=== PATIENT | male | born 1955 | race Caucasian/White ===

== ENCOUNTER 2020-09-17 13:25 | Outpatient (CLI) | payer MEDICARE, SELFPAY ==
--- NOTE | 2020-09-17 | XR_ITS ---
WS: [id number] LUMBAR SPINE: 3 VIEWS TECHNIQUE: AP, lateral and L5-S1 spot. HISTORY: LUMBAGO WITH SCIATICA LEFT COMPARISON: None available. Posterior lumbar alignment is normal. Mild narrowing of the disc spaces. Endplate osteophytes throughout all levels. Moderate facet joint a rthritis L4-5 and L5-S1. Pedicles are all identified. Mild narrowing and sclerosis of the SI joints. Prior cholecystectomy. Atherosclerosis aorta. XR/XR lumbar spine 2-3V* [id number] IMPRESSION: Moderate spondylitic changes throughout the lumbar spine. No fracture.
== END 2020-09-17 13:26 | disposition home or self-care (01) ==
PROVIDERS: Visit Provider Nurse Practitioner Family
DX: M54.40 Lumbago with sciatica, unspecified side (principal)
CPT/HCPCS: 72100

== ENCOUNTER 2020-11-02 09:59 | Outpatient (CLI) | payer MEDICARE, SELFPAY ==
--- NOTE | 2020-11-02 10:15 | CT_ITS ---
WS: [id number] CT ABDOMEN PELVIS TECHNIQUE: Contrast-enhanced CT of the abdomen and pelvis with coronal and sagittal reformatted image s. CLINICAL INFORMATION: OTHER SPECIFIED DISEASES OF THE LIVER COMPARISON: None. DLP: 1145.[address] scans at [facility] use at least one of these dose optimization techniques: automated e xposure control; mA and/or kV adjustment per patient size (includes targeted exams where dose is matc hed to clinical indication); or iterative reconstruction. FINDINGS: Diffuse fatty infiltration of the liver. Normal portal vein and splenic vein. Prior cholecystectomy. Physiologic dilatation of the bile duct. Prior gastric bypass. Small esophageal hiatal hernia. Subseg mental atelectasis right lower lobe. Adrenal glands are normal. Normal pancreatic parenchymal enhance ment. Normal caliber abdominal aorta. Aortic calcification. Slightly ectatic distal abdominal aorta. No hydronephrosis in either kidney. Right upper pole renal cyst measuring 3.5 x 4.3 CM. Splenic cyst or hemangioma measuring 4.0 x 4.7 CM. Additional incidental splenic cyst measuring 12 mm. Enlarged prostate measuring 4.1 cm. Recommend correlation PSA. Sigmoid diverticulosis. No evidence of acute diverticulitis. No evidence of high-grade small or large bowel destruction. No free fluid in the pelvis. Disc space narrowing worse at L3-L5. CT/CT abdomen pelvis w con* [id number] IMPRESSION: 1. Diffuse fatty infiltration of the liver. Prior cholecystectomy. 2. Prior gastric bypass. 3. Right upper pole simple renal cyst measuring 4.3 x 3.5 CM. 4. Large splenic cyst or hemangioma measuring 4.0 x 4.7 cm. 5. Mild prostate enlargement measuring 4.1 CM. Recommend correlation PSA. 6. Sigmoid diverticulosis. No evidence of acute diverticulitis.
[2020-11-02] MEDS: iohexol 300 mg/mL 50 mL Btl PO (10:23)
[2020-11-02] MEDS: iohexol 300 mg/mL 100 mL Btl IV (11:44)
== END 2020-11-02 10:00 | disposition home or self-care (01) ==
PROVIDERS: PCP Nurse Practitioner Family; Visit Provider Nurse Practitioner Family
DX: K76.89 Other specified diseases of liver (principal); K76.0 Fatty (change of) liver, not elsewhere classified; Z98.84 Bariatric surgery status; N28.1 Cyst of kidney, acquired; D73.4 Cyst of spleen; N40.0 Benign prostatic hyperplasia without lower urinary tract symptoms; K57.30 Diverticulosis of large intestine without perforation or abscess without bleeding
CPT/HCPCS: 74177; Q9967

== ENCOUNTER → 2020-11-20 14:27 | Outpatient (BNVA) | payer MEDICARE, SELFPAY | PROVIDERS: PCP Nurse Practitioner Family; Visit Provider Psychiatry & Neurology Psychiatry | DX: F33.2 Major depressive disorder, recurrent severe without psychotic features (principal); F41.1 Generalized anxiety disorder; F10.21 Alcohol dependence, in remission | CPT/HCPCS: 99204 ==

== ENCOUNTER → 2021-12-01 09:41 | Outpatient (BNVA) | payer MEDICARE, SELFPAY | PROVIDERS: PCP Nurse Practitioner Family; Referring Provider Nurse Practitioner Family; Visit Provider Specialist | DX: M75.81 Other shoulder lesions, right shoulder (principal) | CPT/HCPCS: 73030; 99204 ==

== ENCOUNTER 2022-01-07 08:04 | Emergency (ER) | payer MEDICARE, SELFPAY ==
[2022-01-07 08:19] VITALS: BP 143/93; PULSE 68; RESP 15; TEMP 36.4; O2SAT 94; BMI 33.0
[2022-01-07 08:26] VITALS: BP 130/85; O2SAT 97
--- NOTE | 2022-01-07 08:27 | XR_ITS ---
WS: [id number] XR wrist LT min 3V* [id number] REASON FOR EXAM: fall with wrist pain FINDINGS: Significant decreased bone density. There is deformity of the distal radial metaphysis most compatible with remote previous fracture maciel angel luis the age is uncertain as there are areas of linear sclerosis and lucency indicating this could be a subacute fracture or possibly an acute injury superimposed on old healed injury. The fracture is extra-articular with preservation of the articular surface. There is no significant r adial shortening. Fracture line is inferior to the radial ulnar joint. XR/XR wrist LT min 3V* [id number] IMPRESSION: Fracture of the distal radius uncertain age. Possibly subacute or acute injury superimposed on an old healed injury.
--- NOTE | 2022-01-07 08:54 | ED_ITS ---
Documented by User: [email or web address] Page 01/08/22 07:23 HPI - Extremity Problem General: Chief complaint: Extremity Injury, Upper Stated complaint: Left wrist in pain and pain in stomach Time Seen by Provider: 01/07/22 08:06 History of Present Illness: Patient is a 66-year-old male who comes to the ED with multiple complaints. this morning patient tripped over a briefcase and fell landing on his left wrist. He now has 7 out of 10 pain in his left wrist. He says it hurts for him to move his wrist or fingers. The other reason patient came to the ED today was because he has been having abdominal pain for the past month. Says the abdominal pain has progressed and its getting more severe over the past couple days. He rates the abdominal pain currently a 6 out of 10. Abdominal pain is located in the periumbilical and epigastric region of the abdomen. He has decreased appetite. Denies any fevers, nausea/vomiting, bladder or bowel symptoms. Past surgical history of gastric sleeve, cholecystectomy and appendectomy. Associated symptoms: Deny chest pain, fever(s) or rash Review of Systems Const: Denies: fever(s), chills or fatigue Eyes: Denies: change in vision or eye discomfort ENMT: Denies: throat pain, odynophagia, nasal discharge or nasal congestion Card: Denies: chest pain, palpitations, edema, swelling of feet/ankles, dyspnea on exertion or orthopnea Resp: Denies: dyspnea, productive cough or non-productive cough GI: Reports: abdominal pain; Denies: nausea, vomiting, diarrhea, constipation or hematochezia : Denies: flank pain, difficulty urinating, dysuria or hematuria Musc: Reports: extremity pain (left wrist pain); Denies: neck pain, back pain or extremity swelling Skin/Breast: Denies: rash or new lesions Neuro: Denies: headache(s), numbness in extremities or weakness in extremities PFSH ED PFSH: Medical History Chest pressure Hyperlipidemia LDL goal <100 Family History Mother , 54 y/o Hypertension Stroke Father Family history of CABG Aneurysm Dementia Brother Family history of CABG Myocardial infarction Grandfather Aneurysm Suicide Psychiatric illness Social History Smoking and tobacco status: current every day smoker cigarettes Packs smoked per day: 1 Years cigarettes smoked: 5 Quit status (tobacco): has tried quititng Number of times tried to quit tobacco: 1 Second hand smoke exposure: Yes Alcohol intake: former Physical Exam Const: COMMON NORMALS: patient oriented x3 and alert GENERAL APPEARANCE: cooperative HENMT: COMMON NORMALS: normocephalic HEAD & SCALP: normocephalic MOUTH: Normal oral and palatal mucosa present THROAT: posterior oropharynx normal and uvula midline Neck/C-Spine: COMMON NORMALS: supple GENERAL: Yes normal visual inspection Resp: COMMON NORMALS: normal respiratory effort, No retractions, No use of accessory muscles and clear to auscultation bilaterally AUSCULTATION: clear to auscultation bilaterally Cardio: COMMON NORMALS: regular rate, regular rhythm, S1 normal heart sound present, S2 normal heart sound present, No gallops present (Cardio), No clicks present (Cardio), No murmurs present (Cardio) and Peripheral pulses 2+ throughou t RATE: regular rate RHYTHM: regular rhythm HEART SOUNDS: S1 normal heart sound present and S2 normal heart sound present PERIPHERAL PULSES: Peripheral pulses 2+ throughout GI: COMMON NORMALS: Normal to inspection, nondistended, normoactive bowel sounds present, Soft to palpation and no masses PALPATION: Yes Soft to palpation and Yes Tenderness to palpation present (GI) Details: other (Periumbilical and epigastric region) : COMMON NORMALS: Yes no CVA tenderness BLADDER/KIDNEY EXAM: Yes no CVA tenderness Back/Pelvis: COMMON NORMALS: no CVA tenderness Extremity: LEFT UPPER EXTREMITY: Yes wrist Left wrist: Yes inspection (Swelling, ecchymosis noted, mild deformity seen.), Yes palpation (Nontender), Yes ROM (Limited range of motion) and Yes neurovascular exam (Intact) Neuro: COMMON NORMALS: patient oriented x3 SENSORIUM/ORIENTATION: Yes alert GAIT: Yes Normal gait present Skin: GENERAL SKIN EXAM: dry skin Course Vital Signs: Vital signs: Vital Signs Temperature 97.6 F 01/07/22 08:19 Pulse Rate 55 L 01/07/22 11:03 Respiratory Rate 17 01/07/22 09:03 Blood Pressure 124/77 01/07/22 11:03 Pulse Oximetry 94 01/07/22 11:03 Oxygen Delivery Me thod 01/07/22 08:26 MDM - Extremity (Nontraumatic) Medical Decision Making Patient is a 66-year-old male who comes to the ED with multiple complaints. this morning patient tripped over a briefcase and fell landing on his left wris t. He now has 7 out of 10 pain in his left wrist. He says it hurts for him to move his wrist or fingers. The other reason patient came to the ED today was because he has been having abdominal pain for the past month. Says the abdominal pain has progressed and its getting more severe over the past couple days. He rates the abdominal pain currently a 6 out of 10. Abdominal pain is located in the periumbilical and epigastric region of the abdomen. Vitals are stable exam of patient shows some periumbilical tenderness. Left wrist has some swelling and ecchymosis noted mild deformity seen. Neurovascular intact. Labs are unremarkable. CT of abdomen pelvis shows no acute findings. Wrist x-ray shows distal radius fracture. I placed an order with case management for patient be referred to Ortho for follow-up. He was put in a volar wrist splint and stable for discharge home. He was diagnosed with a left wrist fracture and abdominal pain. He was discharged home with a prescription for some Zofran and hydrocodone for pain. Return to ED precautions given. Patient understood and a greed with plan. Lab Data I reviewed the patient's lab results. 01/07/22 08:46 01/07/22 08:46 Radiology Impressions Wrist X-Ray 01/07/22 08:27 IMPRESSION: Fracture of the distal radius uncertain age. Possibly subacute or acute injury superimposed on an old healed injury. Abdomen/Pelvis CT 01/07/22 09:22 IMPRESSION: 1. Normal pancreatic parenchymal enhancement. No evidence of acute pancreatitis. 2. Prior cholecystectomy. Mild intrahepatic and common bile duct dilatation likely physiologic postcholecystectomy similar to previous. This is slightly progressed compared to previous and can be followed up with MRCP. Recommend correlation with biliary function studies. 3. Stable splenic cysts or hemangiomas. Stable RIGHT renal cyst. 4. Prior postoperative changes gastric bypass with small esophageal hiatal hernia. Hiatal hernia appears slightly progressed compared to previous 5. No hydronephrosis. 6. Prior appendectomy. 7. No other acute findings and overall no significant changes compared to previous. Laboratory Results WBC 9.0 10^3/uL (4.0-10.0) 01/07/22 08:46 RBC 5.14 10^6/uL (4.1-5.3) 01/07/22 08:46 Hgb 15.0 g/dL (11.7-16.6) 01/07/22 08:46 Hct 46.2 % (42.0-52.0) 01/07/22 08:46 MCV 89.9 fl (80-94) 01/07/22 08:46 MCH 29.2 pg (28.0-34.0) 01/07/22 08:46 MCHC 32.5 g/dL (30.0-36.0) 01/07/22 08:46 RDW 15.1 % (12.1-15.1) 01/07/22 08:46 Plt Count 185 10^3/cmm (130-400) 01/07/22 08:46 MPV 9.8 fL (7.4-10.4) 01/07/22 08:46 Neut % (Auto) 63.0 % 01/07/22 08:46 Lymph % (Auto) 24.5 % 01/07/22 08:46 [place] % (Auto) 10.7 % 01/07/22 08:46 Eos % (Auto) 0.9 % 01/07/22 08:46 Baso % (Auto) 0.6 % 01/07/22 08:46 Neut # (Auto) 5.65 10^3/uL (1.8-7.7) 01/07/22 08:46 Lymph # (Auto) 2.2 10^3/uL (0.8-4.8) 01/07/22 08:46 [place] # (Auto) 1.0 10^3/uL (0.2-0.9) H 01/07/22 08:46 Eos # (Auto) 0.1 10^3/uL (0.0-0.8) 01/07/22 08:46 Baso # (Auto) 0.1 10^3/uL (0.0-0.1) 01/07/22 08:46 Nucleated RBC % (auto) 0 % 01/07/22 08:46 Nucleated RBCs # 0.0 /100WBC 01/07/22 08:46 Sodium 138 mmol/L (136-145) 01/07/22 08:46 Potassium 4.2 mmol/L (3.5-5.1) 01/07/22 08:46 Chloride 102 mmol/L (98-107) 01/07/22 08:46 Carbon Dioxide 27 mmol/L (22-29) 01/07/22 08:46 Anion Gap 13.2 (5-19) 01/07/22 08:46 BUN 14 mg/dL (8-23) 01/07/22 08:46 Creatinine 1.2 mg/dL (0.7-1.2) 01/07/22 08:46 GFR Calculation 60.4 mL/min (90-130) L 01/07/22 08:46 Glucose 99 mg/dL (65-115) 01/07/22 08:46 Calculated Osmolality 287 mOsm/kg (285-295) 01/07/22 08:46 Calcium 9.1 mg/dL (8.5-10.5) 01/07/22 08:46 Total Bilirubin 0.2 mg/dL (0.15-1.2) 01/07/22 08:46 AST 18 U/L (0-40) 01/07/22 08:46 ALT 13 U/L (0-41) 01/07/22 08:46 Alkaline Phosphatase 124 U/L (40-130) 01/07/22 08:46 Total Protein 6.9 g/dL (6.6-8.7) 01/07/22 08:46 Albumin 3.7 g/dL (3.5-5.2) 01/07/22 08:46 Globulin 3.2 g/dL (1.3-4.6) 01/07/22 08:46 Lipase 36 U/L (13-60) 01/07/22 08:46 Discharge Plan Discharge Patient Disposition: Home Clinical Impression: Wrist fracture, left Qualifiers: Encounter type: initial encounter Fracture type: closed Qualified Code(s): S62.102A - Fracture of unspecified carpal bone, left wrist, initial encounter for closed fracture Abdominal pain Qualifiers: Abdominal location: periumbilical Qualified Code(s): R10.33 - Periumbilical pain Condition: Stable Prescriptions: New ondansetron 4 mg tablet,disintegrating 4 mg PO Q8H PRN (Reason: nausea and vomiting) Qty: 15 0RF No Action nitroglycerin [Nitrostat] 0.4 mg tablet, sublingual 0.4 mg sublingual Q5M PRN (Reason: chest pain) Qty: 25 3RF Rx Instructions: do not exceed 3 doses per episode clonidine HCl 0.1 mg tablet 0.1 mg PO BID atorvastatin 80 mg tablet 80 mg PO DAILY ezetimibe 10 mg tablet 10 mg PO DAILY tamsulosin 0.4 mg capsule 0.4 mg PO DAILY omeprazole 20 mg capsule,delayed release(DR/EC) 20 mg PO DAILY multivitamin Tablet 1 tab PO DAILY hydroxyzine HCl 50 mg tablet 50 mg PO TID PRN (Reason: anxiety) Qty: 90 2RF metoprolol succinate 25 mg tablet extended release 24 hr 25 mg PO DAILY Qty: 30 0RF Rx Instructions: MUST have follow-up with new provider for further refills diazepam 10 mg Tablet 10 mg PO TID PRN (Reason: Anxiety) gabapentin 600 mg tablet 600 mg PO BID sertraline 100 mg tablet 100 mg PO DAILY Discharge Orders: Discharge ED (Routine); Ordered 01/07/22 Ordered By: Jakub Browning Referrals: Cortney Verdugo DO [Primary Care Provider] - Discharge Diet: Regular Discharge Activity: Increase activity as tolerated Patient Instructions: Wrist Fracture in Children (ED), Abdominal Pain (ED), Opioid Safety Activity Restrictions/Additional Instructions: Follow-up with medical provider as directed. Case management should contact you in the next several days to set up an appointment with Ortho for follow-up on wrist fracture. Take medications as prescribed. Return to the ER or your medical provider if condition worsens. Please read and understand discharge instructions. Thank you for choosing [facility] for your healthcare needs today. Please realize this is an emergency room and that we are providing you with a medical screening exam and this may not be complete and all inclusive of all the testing and or work up that you may need to determine your ailment or severity of your illness. It is very important that you follow up as instructed or that you return to the Emergency Department should you have concerns or if your condition changes or worsens in any way. Coding Level of Care Code ED [employer] for [facility] Fwd Exam Comprehensive Documented by User: Ben Lafleur DO 01/08/22 09:07 HPI - Extremity Problem General: Chief complaint: Extremity Injury, Upper Stated complaint: Left wrist in pain and pain in stomach Time Seen by Provider: 01/07/22 08:06 [facility] ED PFSH: Medical History Chest pressure Hyperlipidemia LDL goal <100 Family History Mother , 54 y/o Hypertension Stroke Father Family history of CABG Aneurysm Dementia Brother Family history of CABG Myocardial infarction Grandfather Aneurysm Suicide Psychiatric illness Social History Smoking and tobacco status: current every day smoker cigarettes Packs smoked per day: 1 Years cigarettes smoked: 5 Quit status (tobacco): has tried quititng Number of times tried to quit tobacco: 1 Second hand smoke exposure: Yes Alcohol intake: former Course Vital Signs: Vital signs: Vital Signs Temperature 97.6 F 01/07/22 08:19 Pulse Rate 55 L 01/07/22 11:03 Respiratory Rate 17 01/07/22 09:03 Blood Pressure 124/77 01/07/22 11:03 Pulse Oximetry 94 01/07/22 11:03 Oxygen Delivery Me thod 01/07/22 08:26 MDM - Extremity (Nontraumatic) Medical Decision Making Patient is a 66-year-old male who comes to the ED with multiple complaints. this morning patient tripped over a briefcase and fell landing on his left wrist. He now has 7 out of 10 pain in his left wrist. He says it hurts for him to move his wrist or fingers. The other reason patient came to the ED today was because he has been having abdominal pain for the past month. Says the abdominal pain has progressed and its getting more severe over the past couple days. He rates the abdominal pain currently a 6 out of 10. Abdominal pain is located in the periumbilical and epigastric region of the abdomen. Vitals are stable exam of patient shows some periumbilical tenderness. Left wrist has some swelling and ecchymosis noted mild deformity seen. Neurovascular intact. Labs are unremarkable. CT of abdomen pelvis shows no acute findings. Wrist x-ray shows distal radius fracture. I placed an order with case management for patient be referred to Ortho for follow-up. He was put in a volar wrist splint and stable for discharge home. He was diagnosed with a left wrist fracture and abdominal pain. He was discharged home with a prescription for some Zofran and hydrocodone for pain. Return to ED precautions given. Patient understood and agreed with plan. Chart reviewed and patient discussed with midlevel. Agree with assessment and plan. Lab Data 01/07/22 08:46 01/07/22 08:46 Radiology Impressions Wrist X-Ray 01/07/22 08:27 IMPRESSION: Fracture of the distal radius uncertain age. Possibly subacute or acute injury superimposed on an old healed injury. Abdomen/Pelvis CT 01/07/22 09:22 IMPRESSION: 1. Normal pancreatic parenchymal enhancement. No evidence of acute pancreatitis. 2. Prior cholecystectomy. Mild intrahepatic and common bile duct dilatation likely physiologic postcholecystectomy similar to previous. This is slightly progressed compared to previous and can be followed up with MRCP. Recommend correlation with biliary function studies. 3. Stable splenic cysts or hemangiomas. Stable RIGHT renal cyst. 4. Prior postoperative changes gastric bypass with small esophageal hiatal hernia. Hiatal hernia appears slightly progressed compared to previous 5. No hydronephrosis. 6. Prior appendectomy. 7. No other acute findings and overall no significant changes compared to pr evious. Laboratory Results WBC 9.0 10^3/uL (4.0-10.0) 01/07/22 08:46 RBC 5.14 10^6/uL (4.1-5.3) 01/07/22 08:46 Hgb 15.0 g/dL (11.7-16.6) 01/07/22 08:46 Hct 46.2 % (42.0-52.0) 01/07/22 08:46 MCV 89.9 fl (80-94) 01/07/22 08:46 MCH 29.2 pg (28.0-34.0) 01/07/22 08:46 MCHC 32.5 g/dL (30.0-36.0) 01/07/22 08:46 RDW 15.1 % (12.1-15.1) 01/07/22 08:46 Plt Count 185 10^3/cmm (130-400) 01/07/22 08:46 MPV 9.8 fL (7.4-10.4) 01/07/22 08:46 Neut % (Auto) 63.0 % 01/07/22 08:46 Lymph % (Auto) 24.5 % 01/07/22 08:46 [place] % (Auto) 10.7 % 01/07/22 08:46 Eos % (Auto) 0.9 % 01/07/22 08:46 Baso % (Auto) 0.6 % 01/07/22 08:46 Neut # (Auto) 5.65 10^3/uL (1.8-7.7) 01/07/22 08:46 Lymph # (Auto) 2.2 10^3/uL (0.8-4.8) 01/07/22 08:46 [place] # (Auto) 1.0 10^3/uL (0.2-0.9) H 01/07/22 08:46 Eos # (Auto) 0.1 10^3/uL (0.0-0.8) 01/07/22 08:46 Baso # (Auto) 0.1 10^3/uL (0.0-0.1) 01/07/22 08:46 Nucleated RBC % (auto) 0 % 01/07/22 08:46 Nucleated RBCs # 0.0 /100WBC 01/07/22 08:46 Sodium 138 mmol/L (136-145) 01/07/22 08:46 Potassium 4.2 mmol/L (3.5-5.1) 01/07/22 08:46 Chloride 102 mmol/L (98-107) 01/07/22 08:46 Carbon Dioxide 27 mmol/L (22-29) 01/07/22 08:46 Anion Gap 13.2 (5-19) 01/07/22 08:46 BUN 14 mg/dL (8-23) 01/07/22 08:46 Creatinine 1.2 mg/dL (0.7-1.2) 01/07/22 08:46 GFR Calculation 60.4 mL/min (90-130) L 01/07/22 08:46 Glucose 99 mg/dL (65-115) 01/07/22 08:46 Calculated Osmolality 287 mOsm/kg (285-295) 01/07/22 08:46 Calcium 9.1 mg/dL (8.5-10.5) 01/07/22 08:46 Total Bilirubin 0.2 mg/dL (0.15-1.2) 01/07/22 08:46 AST 18 U/L (0-40) 01/07/22 08:46 ALT 13 U/L (0-41) 01/07/22 08:46 Alkaline Phosphatase 124 U/L (40-130) 01/07/22 08:46 Total Protein 6.9 g/dL (6.6-8.7) 01/07/22 08:46 Albumin 3.7 g/dL (3.5-5.2) 01/07/22 08:46 Globulin 3.2 g/dL (1.3-4.6) 01/07/22 08:46 Lipase 36 U/L (13-60) 01/07/22 08:46 Discharge Plan Discharge Patient Disposition: Home Clinical Impression: Wrist fracture, left Qualifiers: Encounter type: initial encounter Fracture type: closed Qualified Code(s): S62.102A - Fracture of unspecified carpal bone, left wrist, initial encounter for closed fracture Abdominal pain Qualifiers: Abdominal location: periumbilical Qualified Code(s): R10.33 - Periumbilical pain Condition: Stable Prescriptions: New ondansetron 4 mg tablet,disintegrating 4 mg PO Q8H PRN (Reason: nausea and vomiting) Qty: 15 0RF No Action nitroglycerin [Nitrostat] 0.4 mg tablet, sublingual 0.4 mg sublingual Q5M PRN (Reason: chest pain) Qty: 25 3RF Rx Instructions: do not exceed 3 doses per episode clonidine HCl 0.1 mg tablet 0.1 mg PO BID atorvastatin 80 mg tablet 80 mg PO DAILY ezetimibe 10 mg tablet 10 mg PO DAILY tamsulosin 0.4 mg capsule 0.4 mg PO DAILY omeprazole 20 mg capsule,delayed release(DR/EC) 20 mg PO DAILY multivitamin Tablet 1 tab PO DAILY hydroxyzine HCl 50 mg tablet 50 mg PO TID PRN (Reason: anxiety) Qty: 90 2RF metoprolol succinate 25 mg tablet extended release 24 hr 25 mg PO DAILY Qty: 30 0RF Rx Instructions: MUST have follow-up with new provider for further refills diazepam 10 mg Tablet 10 mg PO TID PRN (Reason: Anxiety) gabapentin 600 mg tablet 600 mg PO BID sertraline 100 mg tablet 100 mg PO DAILY Discharge Orders: Discharge ED (Routine); Ordered 01/07/22 Ordered By: Jakub Browning Referrals: Cortney Verdugo DO [Primary Care Provider] - Discharge Diet: Regular Discharge Activity: Increase activity as tolerated Patient Instructions: Wrist Fracture in Children (ED), Abdominal Pain (ED), Opioid Safety Activity Restrictions/Additional Instructions: Follow-up with medical provider as directed. Case management should contact you in the next several days to set up an appointment with Ortho for follow-up on wrist fracture. Take medications as prescribed. Return to the ER or your [place] dical provider if condition worsens. Please read and understand discharge instructions. Thank you for choosing [facility] for your healthcare needs today. Please realize this is an emergency room and that we are providing you with a medical screening exam and this may not be complete and all inclusive of all the testing and or work up that you may need to determine your ailment or severity of your illness. It is very important that you follow up as instructed or that you return to the Emergency Department should you have concerns or if your condition changes or worsens in any way. Coding Level of Care Code ED [employer] for [facility] Exam Comprehensive
[2022-01-07 09:01] LABS: Basophils # 0.1 10^3/uL (0.0-0.1); Basophils % 0.6 %; Eosinophils # 0.1 10^3/uL (0.0-0.8); Eosinophils % 0.9 %; Hematocrit 46.2 % (42.0-52.0); Lymphocytes # 2.2 10^3/uL (0.8-4.8); Lymphocytes % 24.5 %; Mean Corpuscular HGB Conc 32.5 g/dL (30.0-36.0); Mean Corpuscular Hemoglobin 29.2 pg (28.0-34.0); Mean Corpuscular Volume 89.9 fl (80-94); Mean Platelet Volume 9.8 fL (7.4-10.4); Monocytes % 10.7 %; Neutrophils # 5.65 10^3/uL (1.8-7.7); Nucleated Red Blood Cells % 0 %; Platelet Count 185 10^3/cmm (130-400); Red Blood Count 5.14 10^6/uL (4.1-5.3); Red Cell Distribution Width 15.1 % (12.1-15.1)
[2022-01-07 09:03] VITALS: RESP 17; O2SAT 97
[2022-01-07] MEDS: ondansetron 2 mg/ML SDV 2 mL 4 MG IVP (09:03)
[2022-01-07] MEDS: morphine 4 mg/mL SDV 1 mL IVP (09:03)
[2022-01-07 09:18] LABS: Alanine Aminotransferase 13 U/L (0-41); Albumin Level 3.7 g/dL (3.5-5.2); Alkaline Phosphatase 124 U/L (40-130); Anion Gap 13.2 (5-19); Aspartate Amino Transferase 18 U/L (0-40); Blood Urea Nitrogen 14 mg/dL (8-23); Calcium 9.1 mg/dL (8.5-10.5); Carbon Dioxide 27 mmol/L (22-29); Chloride 102 mmol/L (98-107); Globulin 3.2 g/dL (1.3-4.6); Glomerular Filtration Rate 60.4 mL/min (90-130); Glucose 99 mg/dL (65-115); Lipase 36 U/L (13-60); Osmolality Calculated 287 mOsm/kg (285-295); Potassium 4.2 mmol/L (3.5-5.1); Sodium 138 mmol/L (136-145); Total Bilirubin 0.2 mg/dL (0.15-1.2); Total Protein 6.9 g/dL (6.6-8.7)
--- NOTE | 2022-01-07 09:22 | CT_ITS ---
WS: [id number] CT ABDOMEN PELVIS TECHNIQUE: Contrast-enhanced CT of the abdomen and pelvis with coronal and sagittal reformatted image s. CLINICAL INFORMATION: abdominal pain-periumbilical COMPARISON: November 02, 2020 DLP: 995.[address] scans at [facility] use at least one of these dose optimization techniques: automated e xposure control; mA and/or kV adjustment per patient size (includes targeted exams where dose is matc hed to clinical indication); or iterative reconstruction. FINDINGS: Diffuse fatty infiltration the liver. Prior cholecystectomy. Mild intrahepatic biliary ductal intrahe patic dilatation likely physiologic postcholecystectomy. Stable splenic cyst or hemangiomas unchanged . Slight bibasilar atelectasis. Normal pancreatic parenchymal enhancement. No evidence of acute pancr eatitis. Adrenal glands are normal. Normal renal parenchymal enhancement. No hydronephrosis. Stable R IGHT upper pole renal cyst measuring 4.3 x 3.5 CCM. No hydronephrosis in either kidney. Splenic cyst or hemangioma measuring 4.0, 4.7 CCM. Normal portal vein and splenic vein. Normal calibe r abdominal aorta. Celiac and SMA are patent. Gastric bypass. Small esophageal hiatal hernia. Sigmoid diverticulosis. No evidence of acute diverticulitis. No evidence of small or large bowel obst ruction. Prior appendectomy. Prominent prostate measuring 4.1 cm unchanged. Space narrowing lower lum bar spine. CT/CT abdomen pelvis w con* [id number] IMPRESSION: 1. Normal pancreatic parenchymal enhancement. No evidence of acute pancreatiti s. 2. Prior cholecystectomy. Mild intrahepatic and common bile duct dilatation li kp physiologic postcholecystectomy similar to previous. This is slightly prog ressed compared to previous and can be followed up with MRCP. Recommend correla tion with biliary function studies. 3. Stable splenic cysts or hemangiomas. Stable RIGHT renal cyst. 4. Prior postoperative changes gastric bypass with small esophageal hiatal her radha. Hiatal hernia appears slightly progressed compared to previous 5. No hydronephrosis. 6. Prior appendectomy. 7. No other acute findings and overall no significant changes compared to prev ious.
[2022-01-07] MEDS: iohexol 350 mg/mL 500 mL Btl (per mL) IV (09:48)
[2022-01-07] MEDS: sodium chloride 0.9% 500 ML 999 ML IV (10:18)
[2022-01-07 11:03] VITALS: BP 124/77; PULSE 55; O2SAT 94
--- NOTE | 2022-01-07 12:19 | DCPLANNER ---
Addendum entered by Sue Wheeler 01/14/22 13:57: Patient had a follow up appointment scheduled for 01.13.22 with ortho - patient did attend appointment. Original Note: nurse manager had message to schedule a follow up appointment for patient with ortho. nurse manager sent patients information to the front office staff at ortho. Patients information will be printed and reviewed. Clinic will call patient with appointment information.
== END 2022-01-07 11:05 | disposition home or self-care (01) ==
PROVIDERS: Emergency Provider Physician Assistant; PCP Family Medicine
DX: S52.502A Unspecified fracture of the lower end of left radius, initial encounter for closed fracture (principal); R10.33 Periumbilical pain; E78.5 Hyperlipidemia, unspecified; F17.210 Nicotine dependence, cigarettes, uncomplicated; W18.09XA Striking against other object with subsequent fall, initial encounter
CPT/HCPCS: 29125; 73110; 74177; 80053; 83690; 85025; 96361; 96374; 96375; 99285; J2270; J2405; J7040; Q9967

== ENCOUNTER 2022-01-13 09:11 | Outpatient (CLI) | payer MEDICARE, SELFPAY ==
--- NOTE | 2022-01-13 09:30 | MR_ITS ---
WS: [id number] MRI RIGHT SHOULDER NONCONTRAST TECHNIQUE: Sagittal T2, coronal T1, T2 and proton density imaging. Axial gradient PDE imaging. CLINICAL INFORMATION: right shoulder pain COMPARISON: None. FINDINGS: Moderate degenerative arthritis AC joint with mild downsloping acromion. Slight subacromial spurring. Edema and fluid at the AC joint. Chronic thinning of the distal supraspinatus. Chronic thinning of the supraspinatus with tendinopathy . Infraspinatus is intact with mild tendinopathy distally. Tiny insertional infraspinatus tear. Isadora l teres minor. Normal subscapularis. Hypertrophic spurring along the humeral neck. Advanced degenerat mary arthritis glenohumeral joint. Biceps tendon intact within the bicipital groove although somewhat diminutive especially along the pr oximal portion. This is likely due to prior chronic tear. Intra-articular portion difficult to visual ize and likely chronically torn MR/MR shoulder RT wo con* [id number] IMPRESSION: 1. Advanced degenerative arthritis AC joint with mild edema. Small amount of f luid. Slight subacromial spurring. 2. Tendinopathy distal supraspinatus with chronic thinning. Tiny tear at the i nfraspinatus insertion. Tendinopathy infraspinatus. 3. Rotator cuff is otherwise intact. 4. Biceps tendon intact within the bicipital groove although somewhat diminuti ve along the proximal and intra-articular portions likely due to chronic tear. Small intra-articular biceps tendon difficult to visualize. 5. Advanced degenerative arthritis at the glenohumeral joint.
== END 2022-01-13 09:12 | disposition home or self-care (01) ==
PROVIDERS: PCP Family Medicine; Visit Provider Specialist
DX: S62.102A Fracture of unspecified carpal bone, left wrist, initial encounter for closed fracture (principal); M19.011 Primary osteoarthritis, right shoulder; M75.81 Other shoulder lesions, right shoulder; X58.XXXA Exposure to other specified factors, initial encounter
CPT/HCPCS: 73110; 73221

== ENCOUNTER 2022-01-13 11:52 | Outpatient (CLI) | payer MEDICARE, SELFPAY | END 2022-01-13 11:53 | disposition home or self-care (01) | LOC: SPT 11:53 | PROVIDERS: PCP Family Medicine; Visit Provider Physician Assistant | DX: Z46.89 Encounter for fitting and adjustment of other specified devices (principal); S52.592D Other fractures of lower end of left radius, subsequent encounter for closed fracture with routine healing; X58.XXXD Exposure to other specified factors, subsequent encounter | CPT/HCPCS: 97760; 99203; L3982 ==

== ENCOUNTER → 2022-02-02 07:45 | Outpatient (BNVA) | payer MEDICARE, SELFPAY | PROVIDERS: PCP Family Medicine; Visit Provider Specialist | DX: M75.81 Other shoulder lesions, right shoulder (principal); M19.011 Primary osteoarthritis, right shoulder | CPT/HCPCS: 99213 ==

== ENCOUNTER → 2022-02-03 08:06 | Outpatient (BNVA) | payer MEDICARE, SELFPAY | PROVIDERS: PCP Family Medicine; Visit Provider Physician Assistant | DX: S52.502D Unspecified fracture of the lower end of left radius, subsequent encounter for closed fracture with routine healing (principal); X58.XXXD Exposure to other specified factors, subsequent encounter | CPT/HCPCS: 73110; 99212 ==

== ENCOUNTER → 2024-04-22 09:10 | Outpatient (BNVA) | payer MEDICARE, SELFPAY | PROVIDERS: PCP Family Medicine; Visit Provider Specialist | DX: M19.011 Primary osteoarthritis, right shoulder (principal) | CPT/HCPCS: 20610; 73030; 99214; J1100; J2795; J3301; J9999 ==

== ENCOUNTER → 2024-05-13 10:39 | Outpatient (BNVA) | payer MEDICARE, SELFPAY | PROVIDERS: PCP Family Medicine; Visit Provider Specialist | DX: M19.012 Primary osteoarthritis, left shoulder (principal) | CPT/HCPCS: 20610; 73030; 99214; J1100; J2795; J3301; J9999 ==

== ENCOUNTER → 2024-12-09 09:54 | Outpatient (BNVA) | payer MEDICARE, SELFPAY | PROVIDERS: PCP Family Medicine; Visit Provider Student in an Organized Health Care Education/Training Program | DX: R12 Heartburn (principal); R03.0 Elevated blood-pressure reading, without diagnosis of hypertension | CPT/HCPCS: 99204 ==

== ENCOUNTER 2024-12-16 07:56 | Day surgery (SDC) | payer MEDICARE, SELFPAY ==
[2024-12-16 08:18] VITALS: BP 149/102; PULSE 70; RESP 18; TEMP 36.6; O2SAT 95
--- NOTE | 2024-12-16 08:24 | ANES.PREANE2 ---
Pre-Anesthetic Assessment Height/Weight: Height 1.78 m Weight 95.254 kg Temp Pulse Resp BP Pulse Ox O2 Del Method 97.9 F 70 18 149/102 95 Room Air 12/16/24 08:18 12/16/24 08:18 12/16/24 08:18 12/16/24 08:18 12/16/24 08:18 12/16/24 08:18 Preop Diagnosis: Abd pain, screening Operation Date: 12/16/24 09:15 Proposed Procedures p EGD EGD with Biopsy [id number] [id number] G0121 R12 Z12.11(Not Applicable) - J Carlos Encarnacion MD s Colonoscopy(Not Applicable) - J Carlos Encarnacion MD Was Beta Tenzin taken within 24 hours: Yes Was Clonidine taken within 24 hours: N/A Social Tobacco and No alcohol Exam alert, oriented x 3, clear to auscultation bilaterally and regular rate & rhythm Airway Submandibular: within normal limits Cervical ROM: within normal limits Mallampati: Class II Dentition: false History/ROS No significant history except as noted and No significant complaints Pulmonary Chronic Obstructive Pulmonary Disease CV/HEM Hypertension None reported Hepatic None reported GI Hx gastric bypass Metabolic None reported Musc/skel Lower Back Pain and Osteoarthritis/DJD Neuropsych None reported Anesthetic Plan ASA status: 3 Anesthesia: Anesthesia Evaluation and MAC Risk of > 500 ml blood loss (7ml/kg in children): No Medications/Allergies Home Medications ?Medication ?Instructions ?Recorded ?Confirmed ?Last Taken ?Type atorvastatin 80 mg tablet 80 mg PO DAILY 10/19/20 12/11/24 12/11/24 06:00 History ezetimibe 10 mg tablet 10 mg PO DAILY 10/19/20 12/11/24 12/11/24 06:00 History omeprazole 20 mg capsule,delayed 20 mg PO DAILY 10/19/20 12/11/24 12/11/24 06:00 History release nitroglycerin 0.4 mg sublingual 0.4 mg sublingual Q5M PRN chest 12/03/20 12/11/24 12/11/24 06:00 Rx tablet (Nitrostat) pain #25 tabs metoprolol succinate 25 mg 25 mg PO DAILY #30 tabs 12/06/21 12/11/24 12/11/24 06:00 Rx tablet,extended release 24 hr diazepam 10 mg tablet 10 mg PO TID PRN Anxiety 01/07/22 12/11/24 12/11/24 06:00 History gabapentin 600 mg tablet 600 mg PO BID 01/07/22 12/11/24 12/11/24 06:00 History ondansetron 4 mg disintegrating 4 mg PO Q8H PRN nausea and 01/07/22 12/11/24 Unknown Rx tablet vomiting #15 tabs sertraline 100 mg tablet 100 mg PO DAILY 01/07/22 12/11/24 12/10/24 18:00 History fast form #1 ea 01/13/22 12/09/24 Unknown Rx cholecalciferol (vitamin D3) 1,250 PO .weekly 12/09/24 12/09/24 12/11/24 06:00 History mcg (50,000 unit) capsule evolocumab 140 mg/mL subcutaneous 140 mg SUBCUT .every 2 weeks 12/09/24 12/11/24 12/11/24 06:00 History pen injector (Repatha SureClick) Allergies Allergy/AdvReac Type Severity Reaction Status Date / Time shrimp Allergy Severe Anaphylaxis Verified 12/11/24 11:12 [facility] Anesthesia Medical History Hyperlipidemia LDL goal <100 Chest pressure Family History Mother , 54 y/o Hypertension Stroke Father Family history of CABG Aneurysm Dementia Brother Family history of CABG Myocardial infarction Grandfather Aneurysm Suicide Psychiatric illness Social History Smoking and tobacco/nicotine status: current every day tobacco/nicotine user cigarettes Packs smoked per day: 1 Years cigarettes smoked: 5 Quit status (tobacco/nicotine): has tried quititng Number of times tried to quit tobacco: 1 Second hand smoke exposure: Yes Alcohol intake: former Substance/Drug Use: current
--- NOTE | 2024-12-16 08:36 | W.PM.OPSUD ---
Surgery/Procedure H&P Update DATE OF PROCEDURE: December 16, 2024 DATE H&P PERFORMED: 12/09/24 H&P UPDATE INFORMATION: I have reviewed H&P completed within last 30 days, I have examined patient prior to procedure, No changes to prior documentation and Risks and benefits of the procedure reviewed CHANGES TO PREVIOUS DOCUMENTATION: I have explained the risks and benefits of a screening colonoscopy and the patient agrees to proceed. Patient is average for colon cancer. Patient understands that hemoccult is an alternative and still decides to proceed with colonoscopy. Had an extensive discussion with the patient. Answered all questions. Patient understands that the risks include a 1% risk of iatrogenic perforation and risk of aspiration. I have explained the risks and benefits of a diagnostic EGD with biopsy and the patient agrees to proceed. PREOP DIAGNOSIS: Abd pain, screening PLANNED PROCEDURE: Operation Date: 12/16/24 09:15 Proposed Procedures p EGD EGD with Biopsy [id number] G0121 R12 Z12.11(Not Applicable) - J Carlos Encarnacion MD s Colonoscopy(Not Applicable) - J Carlos Encarnacion MD
--- NOTE | 2024-12-16 09:00 | ANE.PACU2 ---
Inpatient post-anesthesia follow up: Airway intact: Yes Vital signs: Temperature 97.1 F Pulse Rate 54 Respiratory Rate 18 Blood Pressure 133/88 Pulse Oximetry 95 Oxygen Delivery Me thod Room Air Oxygen Flow Rate Fraction of Inspir ed Oxygen Hydration adequate: Yes Nausea and vomiting: No Pain level: 1 Mental status: Baseline
[2024-12-16 09:15] VITALS: BP 134/86; PULSE 63; RESP 20; TEMP 36.2; O2SAT 96
[2024-12-16 09:34] VITALS: BP 133/88; PULSE 54; RESP 18; O2SAT 95
== END 2024-12-16 09:40 | disposition home or self-care (01) ==
PROVIDERS: PCP Family Medicine; Visit Provider Student in an Organized Health Care Education/Training Program
PROC: 0DJ08ZZ Inspection of Upper Intestinal Tract, Via Natural or Artificial Opening Endoscopic (ICD-10-PCS; principal; 2024-12-16 09:15)
PROC: 0DJD8ZZ Inspection of Lower Intestinal Tract, Via Natural or Artificial Opening Endoscopic (ICD-10-PCS; CPT 45378; 2024-12-16 09:15)
DX: Z12.11 Encounter for screening for malignant neoplasm of colon (principal); D12.6 Benign neoplasm of colon, unspecified; K52.9 Noninfective gastroenteritis and colitis, unspecified; R12 Heartburn; K29.70 Gastritis, unspecified, without bleeding; J44.9 Chronic obstructive pulmonary disease, unspecified; I10 Essential (primary) hypertension; Z98.84 Bariatric surgery status; K21.9 Gastro-esophageal reflux disease without esophagitis; E78.5 Hyperlipidemia, unspecified; F17.210 Nicotine dependence, cigarettes, uncomplicated
CPT/HCPCS: 43239; 45380; 88305; J2704; J7030; J9999

== ENCOUNTER → 2025-01-03 08:50 | Outpatient (BNVA) | payer MEDICARE, SELFPAY | PROVIDERS: PCP Family Medicine; Visit Provider Student in an Organized Health Care Education/Training Program | DX: Z51.89 Encounter for other specified aftercare (principal) | CPT/HCPCS: 99213 ==

== ENCOUNTER 2025-01-09 12:51 | Emergency (ER) | payer MEDICARE, SELFPAY ==
[2025-01-09 12:49] VITALS: BP 140/81; PULSE 62; RESP 18; TEMP 36.6; O2SAT 96; BMI 30.1
--- NOTE | 2025-01-09 12:49 | XR_ITS ---
WS: [id number] Exam: XR ankle LT min 3V* [id number] Date/Time of Exam: 01/09/2025 12:55 PM Reason For Exam: trauma On the oblique view there is a questionable nondisplaced hairline fracture across the medial malleolus. This is not identified on the other views. The ankle mortise is equidistant. No other sign of fracture. Marked soft tissue thickening identified in the region of the Achilles tendon. This could represent acute injury or chronic tendinopathy. XR/XR ankle LT min 3V* [id number] IMPRESSION: 1. Questionable hairline nondisplaced fracture of the medial malleolus seen onl y on the oblique view. 2. There is marked posterior soft tissue thickening which could indicate Achil les tendon injury or chronic tendinopathy..
--- NOTE | 2025-01-09 12:49 | US_ITS ---
WS: [id number] ULTRASOUND SOFT TISSUES LEFT Achilles tendon HISTORY: L achilles tendon COMPARISON: CT 01/09/2025 and radiograph 01/09/2025 TECHNIQUE: 2-D and color Doppler imaging is submitted. There is a large complex mass centered along the Achilles tendon. No identifiable normal morphology of the tendon identified at this location. There our some images where the tendon appears to be intact but these are not labeled to describe the location to the Achilles injury. US/US soft tissue/extremity [id number] IMPRESSION: Ultrasound findings are highly suspicious for a complete Achilles tendon tear w ith hemorrhage. Recommend nonurgent MRI LEFT ankle.
--- NOTE | 2025-01-09 13:24 | CT_ITS ---
WS: [id number] Noncontrast CT LEFT ankle TECHNIQUE: Noncontrast CT LEFT ankle with coronal and sagittal reformatted images. CLINICAL INFORMATION: occult fracture/achilles tendon rupture COMPARISON: None. DLP: 162.[address] scans at [facility] use at least one of these dose optimization techniques: automated exposure control; mA and/or kV adjustment per patient size (includes targeted exams where dose is matched to clinical indication); or iterative reconstruction. FINDINGS: Marked diffuse Achilles tendinopathy with peritendinitis. Associated soft tissue edema. Suspected high-grade near full-thickness partial tear approximately 6 cm from the distal insertion. No tendon retraction. Recommend follow-up MRI for better detail. Degenerative arthritis ankle mortise. Normal medial and lateral malleolus. Distal fibula appears normal. Tibial plafond appears normal. Normal talar dome. Talar neck is normal. Normal calcaneus. Achilles insertion enthesophytes. Normal cuboid. Base of the fifth metatarsal is normal. No acute fractures CT/CT ankle LT wo con* [id number] IMPRESSION: 1. Marked Achilles tendinopathy with peritendinitis. Suspected high-grade part ial near full-thickness tear approximately 6 cm from the distal insertion. Deon mmend follow-up MRI for better anatomic detail. No tendon widening. 2. No acute fractures visualized
--- NOTE | 2025-01-09 13:28 | W.ED.EXTPRO ---
HPI - Extremity Problem General: Chief complaint: Extremity Injury, Lower Stated complaint: fall 1 week ago - left leg pain History of Present Illness: 69-year-old male presents emergency room complaining of left ankle pain. About a week and a half ago he stepped in a pothole while deer hunting injured his left ankle. He has been ambulating and bearing weight on it since then and then today felt a popping sensation and states he cannot bear weight at all on that left leg. No other injuries. No chest pain no shortness of breath no swelling lower extremity Associated symptoms: Deny chest pain, fever(s) or rash Related Data Home Medications ?Medication ?Instructions ?Recorded ?Confirmed atorvastatin 80 mg tablet 80 mg PO QAM 10/19/20 01/09/25 ezetimibe 10 mg tablet 10 mg PO QPM 10/19/20 01/09/25 diazepam 10 mg tablet 10 mg PO TID PRN Anxiety 01/07/22 01/09/25 gabapentin 600 mg tablet See Rx Instructions .Route .COMPLEX 01/07/22 01/09/25 sertraline 100 mg tablet 100 mg PO QPM 01/07/22 01/09/25 cholecalciferol (vitamin D3) 1,250 1,250 mcg PO .weekly 12/09/24 01/09/25 mcg (50,000 unit) capsule evolocumab 140 mg/mL subcutaneous 140 mg SUBCUT .every 2 weeks 12/09/24 01/09/25 pen injector ([place]) metoprolol succinate 25 mg 25 mg PO QAM 01/09/25 01/09/25 tablet,extended release 24 hr omeprazole 40 mg capsule,delayed 40 mg PO DAILY 01/09/25 01/09/25 release trazodone 150 mg tablet 300 mg PO BEDTIME PRN Sleep 01/09/25 01/09/25 Previous Rx's ?Medication ?Instructions ?Recorded nitroglycerin 0.4 mg sublingual 0.4 mg sublingual Q5M PRN chest 12/03/20 tablet (Nitrostat) pain #25 tabs fast form #1 ea 01/13/22 diclofenac sodium 75 mg 75 mg PO Q12H PRN pain #20 tabs 01/09/25 tablet,delayed release Allergies Allergy/AdvReac Type Severity Reaction Status Date / Time shrimp Allergy Severe Anaphylaxis Verified 01/03/25 08:52 Review of Systems Const: Denies: fever(s) or chills Card: Denies: chest pain Resp: Denies: dyspnea GI: Denies: abdominal pain : Denies: dysuria, urinary frequency or urinary urgency Musc: Denies: neck pain or back pain Skin/Breast: Denies: rash PFSH ED PFSH: Medical History Hyperlipidemia LDL goal <100 Chest pressure Family History Mother , 54 y/o Hypertension Stroke Father Family history of CABG Aneurysm Dementia Brother Family history of CABG Myocardial infarction Grandfather Aneurysm Suicide Psychiatric illness Social History Smoking and tobacco/nicotine status: current every day tobacco/nicotine user cigarettes Packs smoked per day: 1 Years cigarettes smoked: 5 Quit status (tobacco/nicotine): has tried quititng Number of times tried to quit tobacco: 1 Second hand smoke exposure: Yes Alcohol intake: former Substance/Drug Use: current Physical Exam Const: COMMON NORMALS: no acute distress GENERAL APPEARANCE: cooperative and comfortable ORIENTATION/CONSCIOUSNESS: Yes awake, Yes oriented to person, Yes oriented to place and Yes oriented to time HENMT: COMMON NORMALS: normocephalic, atraumatic and hearing grossly normal bilaterally HEAD & SCALP: normocephalic and atraumatic Resp: COMMON NORMALS: normal respiratory effort, No retractions, No use of accessory muscles and clear to auscultation bilaterally AUSCULTATION: clear to auscultation bilaterally Cardio: COMMON NORMALS: regular rate, regular rhythm and No murmurs present (Cardio) RATE: regular rate RHYTHM: regular rhythm GI: COMMON NORMALS: Soft to palpation and No hepatosplenomegaly present AUSCULTATION: Yes normoactive bowel sounds PALPATION: Yes Soft to palpation, No Tenderness to palpation present (GI), No Guarding due to palpation present (GI) and Yes No hepatosplenomegaly present Extremity: OTHER: Examination left ankle dorsalis pedis posterior tibialis pulses palpable sensation normal 0 strength with attempts to plantarflex can flex. Palpation of the Achilles tendon there is significant mild edema in the lower aspect near the insertion of the Achilles at the calcaneus cannot palpate an Achilles tendon. Neuro: SENSORIUM/ORIENTATION: Yes oriented to person, Yes oriented to place and Yes oriented to time Skin: COMMON NORMALS: no rashes or lesions noted GENERAL SKIN EXAM: no rashes or lesions noted Course Vital Signs: Vital signs: Vital Signs Temperature 97.8 F 01/09/25 12:49 Pulse Rate 52 L 01/09/25 14:21 Respiratory Rate 18 01/09/25 12:49 Blood Pressure 117/68 01/09/25 15:09 Pulse Oximetry 93 01/09/25 15:09 Oxygen Delivery Me thod Room Air 01/09/25 15:09 MDM - Extremity (Nontraumatic) Medical Decision Making Medical decision making Social determinants: None I reviewed the patient's medical record. I reviewed the patient's current home meds. Alternate historians: None Differential diagnosis: Ankle fractures versus Achilles tendon injury Lab Review: None Imaging: X-ray questionable medial malleolus fracture. This CT shows that there is no fracture in the ankle however questions Achilles tendon injury. This was also noted on soft tissue ultrasound where there is suspicion for complete tear of the Achilles tendon 5 to 6 cm proximal to its insertion. Discussed with Dr. Osullivan who read the films. Assessment of risk Level of risk: Moderate Hospitalization considerations: No need for hospitalization. Reexamination: Unchanged Assessment and plan: No fracture on imaging however patient is highly suspicious for Achilles tendon rupture both on physical exam with lack of plantarflexion and palpable defect of the Achilles tendon as well as on imaging as described above. Contacted Dr. Hernandez who actually arrived in the emergency room to see the patient for himself. We discussed the findings with the patient together with Dr. Hernandez will coordinate further follow-up. Referral made for follow-up in his office as well as outpatient MRI. Lab Data Radiology Impressions Ankle X-Ray 01/09/25 12:49 IMPRESSION: 1. Questionable hairline nondisplaced fracture of the medial malleolus seen only on the oblique view. 2. There is marked posterior soft tissue thickening which could indicate Achilles tendon injury or chronic tendinopathy.. Soft Tissue Ultrasound 01/09/25 12:49 IMPRESSION: Ultrasound findings are highly suspicious for a complete Achilles tendon tear with hemorrhage. Recommend nonurgent MRI LEFT ankle. Ankle CT 01/09/25 13:24 IMPRESSION: 1. Marked Achilles tendinopathy with peritendinitis. Suspected high-grade partial near full-thickness tear approximately 6 cm from the distal insertion. Recommend follow-up MRI for better anatomic detail. No tendon widening. 2. No acute fractures visualized All radiology interpretation(s) finalized by discharge Discharge Plan Discharge Patient Disposition: Home Clinical Impression: Achilles tendon tear Qualifiers: Encounter type: initial encounter Laterality: left Qualified Code(s): S86.012A - Strain of left Achilles tendon, initial encounter Condition: Stable Prescriptions: New diclofenac sodium 75 mg tablet,delayed release (DR/EC) 75 mg PO Q12H PRN (Reason: pain) Qty: 20 0RF No Action nitroglycerin [Nitrostat] 0.4 mg tablet, sublingual 0.4 mg sublingual Q5M PRN (Reason: chest pain) Qty: 25 3RF Rx Instructions: do not exceed 3 doses per episode atorvastatin 80 mg tablet 80 mg PO QAM ezetimibe 10 mg tablet 10 mg PO QPM cholecalciferol (vitamin D3) 1,250 mcg (50,000 unit) capsule 1,250 mcg PO .weekly Rx Instructions: Monday's Repatha SureClick 140 mg/mL pen injector 140 mg SUBCUT .every 2 weeks (DME) fast form See Rx Instructions .Route .MEDSUPPLY Qty: 1 0RF Rx Instructions: As directed diazepam 10 mg Tablet 10 mg PO TID PRN (Reason: Anxiety) gabapentin 600 mg tablet See Rx Instructions .ROUTE .COMPLEX Rx Instructions: Take 1 tablet by mouth in the morning and 2 tablets in the evening. sertraline 100 mg tablet 100 mg PO QPM omeprazole 40 mg capsule,delayed release(DR/EC) 40 mg PO DAILY trazodone 150 mg tablet 300 mg PO BEDTIME PRN (Reason: Sleep) metoprolol succinate 25 mg tablet extended release 24 hr 25 mg PO QAM Discharge Orders: Discharge ED (Routine); Ordered 01/09/25 Ordered By: Ben Lafleur Referrals: Cortney Verdugo DO [Primary Care Provider, Family Practice] Discharge Diet: Usual diet Discharge Activity: Resume usual activity Patient Instructions: Opioid Safety, Pain Management, Patient Portal & Arnel Instructions Activity Restrictions/Additional Instructions: Thank you for choosing [facility] for your healthcare needs today. It is very important that you follow up as instructed or that you return to the Emergency Department should you have concerns or if your condition changes or worsens in any way. Emergency department visits are focused on emergent conditions, in some cases you may require further evaluation on an outpatient basis. You were seen in the emergency room with complaints of pain on the left lower leg. After evaluation was found that there are no fractures however there is a rupture of your Achilles tendon. Recommend you do not bear any weight on this leg at all. You are placed in a splint and recommend you use crutches. Will set up an outpatient MRI of the tendon and have you follow-up with Dr. Matthews who also seen you while you are in the emergency room (Please note that included in your discharge packet is information concerning opioid safety and pain management. This information is given to all patients were discharged from the ER regardless of their discharge diagnosis or the medicines they usually take or are prescribed.) Print Language: Occitan Coding Level of Care Code ED Marine Oiler for Sampson Jaffe
[2025-01-09 14:21] VITALS: BP 140/81; PULSE 52; O2SAT 91
[2025-01-09 14:52] VITALS: O2SAT 94
--- OUTSIDE RECORDS SUMMARY | 2025-01-09 15:06 | XMS_ITS | Encounter Summary ---
Author Organization [facility] Address [address] [place] [address] Care Team Providers Care Weather Forcaster Name Role Phone LucinaCortney pena Екатерина WILLIAM Primary Care Provider [phone] Reason for Visit * Reason Comments Med Refill Encounter Details Date Type Department Care Team (Late Contact Info) Description 01/04/2025 Refill [facility] [place] [address] [place] [address] Tilley, May, [facility] [address] [place] [address] Social History Tobacco Use Types Packs/Day Years Used Date Smoking Tobacco: Some Days Cigarettes 1 5 Started: 01/02/2018; Last attempted to quit: 01/02/2023 Passive Smoke Exposure: Past Smokeless Tobacco: Never Alcohol Use Standard Drinks/Week Comments Not Currently 0 (1 standard drink = 0.6 oz pure alcohol) recovering alcoholic, sober since 2016 Financial Resource Strain Answer Date R ecorded How hard is it for you to pa y for the very basics like food, housing, medical care, and heating? Patient declined 08/18/2022 Food Insecurity Answer Date Recorded In the past 12 months, have you worried that your food would run out before you had money to buy more? Patient declined 2022 In the past 12 months, did y ou run out of food and didn't have money to buy more? Patient declined 08/18/2022 Transportation Needs Answer Date Record ed In the past 12 months, has l ack of transportation kept you from medical appointments or from getting medications? No 08/18/2022 Lack of Transportation (Non-Medical) Not on file 08/18/2022 Sex and Gender Information Value Date Recorded Sex Assigned at Not on file Legal Sex Male 8:56 AM CDT Gender Identity Not on file Sexual Orientation Not on file documented as of this encounter Miscellaneous Notes * Telephone Encounter - Loretta Fernandez, CALENDER LET OFF OPERATOR - 01/06/2025 12:43 PM CST Medication Refill Request Last Fill Date:12/11/23 #[id number] with 6 RF TAMEKA 11/27/24 Last labs 11/27/24 Recent and Future Visits: Recent Visits Date Type Provider Dept 11/27/24 Office Visit Pramod Nascimento, [facility] 08/20/24 Office Visit Cortney Verdugo DO [facility] 02/21/24 Office Visit Tilley, May, [facility] 12/19/23 Office Visit Pramod Nascimento [facility] 12/11/23 Office Visit TilleyMay, [facility] 09/08/23 Office Visit TilleyMay, [facility] 08/21/23 Office Visit Tilley, May, [facility] Showing recent visits within past 540 days with a meds authorizing provider and meeting all other requirements Future Appointments Date Type Provider Dept 02/21/25 Appointment Tilley, May, [facility] Showing future appointments within next 365 days with a meds authorizing provider and meeting all other requirements Last Labs: Lab Results Component Value Date/Time CREAT 0.96 11/27/2024 01:02 PM CREATPOC 1.20 11/11/2020 09:29 AM BUN 10 11/27/2024 01:02 PM NA 143 11/27/2024 01:02 PM K 3.6 11/27/2024 01:02 PM CL 108 11/27/2024 01:02 PM CO2 29 11/27/2024 01:02 PM GFR 85 11/27/2024 01:02 PM Brett GIBBS - 1955 Check and review of the [place] PDMP performed on 01/06/2025 at 12:43 PM was TRANSFER OPERATOR documented in this encounter Plan of Treatment Upcoming Encounters Date Type Department Care Team (Late st Contact Info) Description 02/21/2025 8:00 AM KILN TRANSFER OPERATOR Office Visit [facility] [place] [address] [place] [id number] Tilley, May, RESEARCH PROFESSOR OF BIOSTATISTICS [address] [place] [address] documented as of this encounter Visit Diagnoses Not on filedocumented in this encounter Additional Health Concerns Assessment Noted Time PHQ-9 Depression Total Score: 2 08/21/19 25 9:04 AM CDT documented as of this encounter Care Teams Weather Forcaster Relationship Specialty Start Date End Date Cortney Verdugo DO [address] [place] [address] PCP - General Family Practice 01/11/21 documented as of this encounter
--- OUTSIDE RECORDS SUMMARY | 2025-01-09 15:06 | XMS_ITS | Encounter Summary ---
Author Organization [facility] Address [address] [place] [address] Care Team Providers Care Special Procedure Tech Name Role Phone Cortney Verdugo Екатерина WILLIAM Primary Care Provider [phone] Encounter Details Date Type Department Care Team (Latest Contact Info) Description 02/25/2024 Results Follow-Up [facility] [place] [address] [place] [address] Tilleymay, MACHINE WORKER [address] [place] [address] CBC WITH DIFFERENTIAL, LIPID PANEL, COMPREHENSIVE METABOLIC PANEL, Additional followed-up results: 2 Social History Tobacco Use Types Packs/Day Years Used Date Smoking Tobacco: Former Cigarettes 1 5 1 03/04/2017 - 01/02/2023 Passive Smoke Exposure: Past Smokeless Tobacco: [...] on file documented as of this encounter Plan of Treatment Upcoming Encounters Date Type Department Care Team (Late st Contact Info) Description 02/21/2025 8:00 AM CORRECTIONAL OFFICER CHIEF Office Visit [facility] [place] [address] [facility] [place] [address] Tilley, May, [facility] [address] [facility] [place] [address] documented as of this encounter Visit Diagnoses Not on filedocumented in this encounter Additional Health Concerns Assessment Noted Time PHQ-9 Depression Total Score: 1 02/20/19 25 9:08 AM CORRECTIONAL OFFICER CHIEF documented as of this encounter Care Teams Special Procedure Tech Relationship Specialty Start Date End Date Cortney Verdugo DO [address] [facility] [place] [facility] [place] [address] PCP - General Family Practice 01/11/21 documented as of this encounter
--- OUTSIDE RECORDS SUMMARY | 2025-01-09 15:06 | XMS_ITS | Clinical Summary ---
Author Organization [facility] Address [address] [place] [address] Phone Care Team Providers Care Lift Manager Name Role Phone Cortney Verdugo Екатерниа WILLIAM Primary Care Provider Allergies Active Allergy Reactions Criticality Noted Date Comments Shrimp Anaphylaxis High 01/13/2022 Medications nitroglycerin (NITROSTAT) 0.4 mg Tablet, Sublingual PLACE 1 TABLET (0.4 MG) UNDER TONGUE EVERY 5 MINUTES NEEDED FOR CHEST PAIN. 25 Tablet 2 024 Active atorvastatin (LIPITOR) 80 mg tabletIndications :Mixed hyperlipidemia TAKE 1 TABLET(80 MG) BY MOUTH DAILY. Strength: 80 mg 100 Tablet 3 024 Active ezetimibe (ZETIA) 10 mg tabletIndications :Mixed hyperlipidemia Take 1 Tablet (10 mg) by mouth daily. 100 Tablet 3 024 Active sertraline (ZOLOFT) 100 mg tabletIndications :Recurrent major depressive disorder, in full remission Take 1 Tablet (100 mg) by mouth daily. 90 Tablet 3 024 Active traZODone (DESYREL) 150 mg tabletIndications :Primary insomnia Take 2 Tablets (300 mg) by mouth daily at bedtime. 90 Tablet 3 024 Active omeprazole (PriLOSEC) 40 mg Capsule, Delayed Release(E.C.)Winter cations:Gastroeso phageal reflux disease without esophagitis Take 1 Capsule (40 mg) by mouth daily. 90 Capsule 3 025 Active diazePAM (VALIUM) 10 mg tabletIndications :Generalized anxiety disorder TAKE ONE TABLET BY MOUTH AT BEDTIME 30 Tablet 2 025 Active evolocumab (Repatha SureClick) 140 mg/mL Pen InjectorIndicatio ns:Coronary artery disease involving [place] coronary artery of [place] heart without angina pectoris,Familial combined hyperlipidemia Inject 1 mL (140 mg) by subcutaneous injection every 2 weeks. 2 mL 025 Active metoprolol succinate (TOPROL XL) 25 mg Extended Release 24 hour tabletIndications :Essential hypertension TAKE ONE TABLET BY MOUTH DAILY 100 Tablet 3 025 Active triamcinolone acetonide (KENALOG) 0.1 % CreamIndications: Chigger bites Apply to affected area 2 times daily. 28.4 Gram 1 025 Active cholecalciferol 1,250 mcg (50,000 unit) CapsuleIndication s:Vitamin D deficiency Take 1 Capsule (50,000 Units) by mouth every 2 weeks. 6 Capsule 3 025 Active gabapentin (NEURONTIN) 600 mg tablet TAKE ONE TABLET BY MOUTH FOUR TIMES DAILY 120 Tablet 6 025 Active gabapentin (NEURONTIN) 600 mg tablet Take 1 Tablet (600 mg) by mouth 4 times daily. 120 Tablet 6 024 2024 Discontinued Active Problems Problem Noted Date Diagnosed Date H/O gastric bypass 09/11/2024 Obesity (BMI 30.0-34.9) 08/20/2024 Rotator cuff tendinitis, right 12/19/2023 Mixed hyperlipidemia 07/19/2021 Vitamin D deficiency 07/19/2021 Essential hypertension 07/19/2021 Gastroesophageal reflux disease without esophagi tis 07/19/2021 Aortic atherosclerosis 07/19/2021 Benign prostatic hyperplasia without lower urinary tract symptoms 07/19/2021 Primary insomnia 07/19/2021 Chronic midline low back pain with bilateral sci atica 07/19/2021 Recurrent major depressive disorder, in full rem ission 07/19/2021 Cigarette smoker 07/19/2021 Resolved Problems Problem Noted Date Diagnosed Date Resolved Date Severe obesity (BMI 35.0-39. 9) with comorbidity 10/23/2021 08/20/2024 Encounters Date Type Department Care Team Description 01/04/2025 [facility] [address] [place] [phone] Treva May, [employer] 12/31/2024 External Device Data [facility] ABSTRACTION Provider, Abstract 12/12/2024 9:07 AM CONSULTING SOLUTION MANAGER - 12/12/2024 11:59 PM CONSULTING SOLUTION MANAGER Hospital Encounter [facility] CT Scan [place] [address] [place] [id number] Pramod Nascimento, [employer] Discharge Disposition: Home or Self Care 11/28/2024 Results Follow-Up [facility] [address] [place] [address] , May, [employer] TSH, CBC WITH DIFFERENTIAL, COMPREHENSIVE METABOLIC PANEL, Additional followed-up results: 5 11/27/2024 12:40 PM CDT Office Visit [facility] [address] [place] [address] Pramod Nascimento, [employer] Chronic abdominal pain (Primary Dx); H/O gastric bypass; Mixed hyperlipidemia; Screening for prostate cancer; Essential hypertension; Vitamin D deficiency 11/05/2024 Orders Only [facility] [address] [place] [address] May, [employer] Chigger bites (Primary Dx) 11/01/2024 Refill [facility] [address] [place] [address] May, [employer] Gastroesophageal reflux disease without esophagitis 10/11/2024 Refill [facility] [address] [place] [address] Tilley, May, [employer] Essential hypertension from Last 3 Months Immunizations Immunization Administration Dates Next Due INFLUENZA VACCINE HIGH DOSE QUADRIVALENT 65 YR UP PF IM 2021,11/07/2020 INFLUENZA VACCINE QUADRIVALENT ADJ 64 YR UP PF I M 12/23/2022 Influenza Seasonal Unspecified Formulation IM ,11/06/2020 Family History Medical History Relation Name Comments Colon Cancer Neg Hx Social History Tobacco Use Types Packs/Day Years Used Date Smoking Tobacco: Some Days Cigarettes 1 5 Started: 01/02/2018; Last attempted to quit: 01/02/2023 Passive Smoke Exposure: Past Smokeless Tobacco: Never Tobacco Cessation:Ready to Q uit: Not Asked; Counseling Given: Not Answered Alcohol Use Standard Drinks/Week Comments Not Currently [...] on file Sexual Orientation Not on file Last Filed Vital Signs Vital Sign Reading Time Taken Comments Blood Pressure 124/62 11/27/2024 12:31 PM CDT Pulse 62 11/27/2024 12:31 PM CDT Temperature 36.6 C (97.9 F) 11/27/2024 12:31 PM CDT Respiratory Rate 17 11/27/2024 12:3 1 PM CDT Oxygen Saturation 97% 11/27/2024 12: 31 PM CDT Inhaled Oxygen Concentration - - Weight 96.1 kg (211 lb 12.8 oz) 025 12:31 PM CDT Height 177.8 cm (5' 10 ) 11/27/2024 12: 31 PM CDT Body Mass Index 30.39 11/27/2024 12:31 PM CDT Plan of Treatment Upcoming Encounters Date Type Department Care Team (Late st Contact Info) Description 02/21/2025 8:00 AM CONSULTING SOLUTION MANAGER Office Visit [facility] [address] [place] [phone] Treva, May, [employer] [address] [place] [phone] Health Maintenance Due Date Last Done Comments Pre-Diabetes and Diabetes Screening 1955 FIT/ DNA Q 3 YEARS (AUTO ORDER) 1972 FIT/FOBT Q 1 YEAR (AUTO ORDER) 1972 FLEX SIG/CT COLONOGRAPHY Q 5 YEARS (AUTO ORDER) 1972 COLORECTAL CANCER SCREENING (AUTO ORDER) 10/20/1999 COLORECTAL SCREENING 10/20/1999 Colorectal Cancer Screening (AUTO ORDER) 10/20/1999 Colorectal Cancer Screening 10/20/1999 FIT-DNA Q 3 years 10/20/1999 FIT/FOBT Q 1 year 10/20/1999 Flex Sig/CT Colonography Q 5 years 10/20/1999 RSV VACCINE (60+ or ) (1 - Risk 50-74 years 1-dose series) 2004 ZOSTER VACCINE (1 of 2) 2004 Abdominal Aortic Aneurysm (A AA) Screening 10/20/2019 INFLUENZA VACCINE (#1) 2024 , 11/22/2021, 2021, Additional history exists COVID-19 Vaccine ( - 2024-2 6 season) 2024 11/22/2021, 01/04/2021, 06/30/2020, Additional history exists DTAP/TDAP/TD VACCINES (2 - T d or Tdap) 08/12/2027 08/11/2017 PNEUMOCOCCAL VACCINE 50+ YEARS Completed 11/29/2013 Medicare Advantage ([place]) Preventative Visit/Annual Wellness Visit Completed 08/20/2024, 08/21/2023, 08/18/2022, Additional history exists Procedures Procedure Name Priority Date/Time Associated Diagnosis Comments CT ABDOMEN W CONTRAST Routine 12/12/2024 9:49 AM CONSULTING SOLUTION MANAGER Chronic abdominal pain H/O gastric bypass VITAMIN D 25 HYDROXY Routine 11/27/2024 1:02 PM CDT Vitamin D deficiency PSA Routine 11/27/2024 1:02 PM CDT Screening for prostate cancer LIPID PANEL Routine 11/27/2024 1:02 PM CDT Mixed hyperlipidemia Essential hypertension TSH Routine 11/27/2024 1:02 PM CDT Mixed hyperlipidemia Essential hypertension ACUTE HEPATITIS PANEL Routine 11/27/2024 1:02 PM CDT Chronic abdominal pain COMPREHENSIVE METABOLIC PANEL Routine 11/27/2024 1:02 PM CDT Chronic abdominal pain H/O gastric bypass Mixed hyperlipidemia Essential hypertension CBC WITH DIFFERENTIAL Routine 11/27/2024 1:02 PM CDT Chronic abdominal pain H/O gastric bypass Mixed hyperlipidemia Essential hypertension from Last 3 Months Results * CT ABDOMEN W CONTRAST (12/12/2024 9:49 AM CONSULTING SOLUTION MANAGER) Anatomical Region Laterality Modality Abdomen Computed Tomogra phy 12/12/2024 10:2 6 AM CONSULTING SOLUTION MANAGER Impressions 12/12/2024 10:10 AM CONSULTING SOLUTION MANAGER IMPRESSION: Please see below. Exam: CT ABDOMEN W CONTRAST Date/Time of Exam: 12/12/2024 9:49 AM Reason For Exam: RUQ abdominal pain, US nondiagnostic. Diagnosis: Chronic abdominal pain; Chronic abdominal pain; H/O gastric bypass. Technique: Axial tomograms obtained through the abdomen with Isovue 300 intravenous contrast, 75 mL. Findings: Imaged lung bases with streak atelectasis. Remote gastric bypass. Minimal hiatal hernia. No obstructive pattern of bowel. Absent appendix. Mild ectatic segments of abdominal aorta. No retroperitoneal lymphadenopathy. No focal concerning hepatic lesion. Surgically absent gallbladder. Spleen size is within normal limits. Dominant 5.3 cm splenic cyst with mild complex features of lobulated margins and trace thin internal septations. Other small splenic cyst. Tiny nonobstructing left renal calculus. Moderate-sized simple exophytic cortical cyst superiorly of right kidney. No hydronephrosis. Pancreas and adrenals within normal limits. No concerning skeletal pathology. IMPRESSION: No acute pathology. Incidental findings as above including dominant sized splenic cyst with mildly complex features as detailed above. Consider surveillance of splenic with ultrasound. Narrative Procedure Note Brisa Nascimento MD - 12/12/2024 IMPRESSION: Please see below. Exam: CT ABDOMEN W CONTRAST Date/Time of Exam: 12/12/2024 9:49 AM Reason For Exam: RUQ abdominal pain, US nondiagnostic. Diagnosis: Chronic abdominal pain; Chronic abdominal pain; H/O gastric bypass. Technique: Axial tomograms obtained through the abdomen with Isovue 300 intravenous contrast, 75 mL. Findings: Imaged lung bases with streak atelectasis. Remote gastric bypass. Minimal hiatal hernia. No obstructive pattern of bowel. Absent appendix. Mild ectatic segments of abdominal aorta. No retroperitoneal lymphadenopathy. No focal concerning hepatic lesion. Surgically absent gallbladder. Spleen size is within normal limits. Dominant 5.3 cm splenic cyst with mild complex features of lobulated margins and trace thin internal septations. Other small splenic cyst. Tiny nonobstructing left renal calculus. Moderate-sized simple exophytic cortical cyst superiorly of right kidney. No hydronephrosis. Pancreas and adrenals within normal limits. No concerning skeletal pathology. IMPRESSION: No acute pathology. Incidental findings as above including dominant sized splenic cyst with mildly complex features as detailed above. Consider surveillance of splenic with ultrasound. us Pramod Nascimento [employer] CT ORDERABLES Final Resu lt * ACUTE HEPATITIS PANEL (11/27/2024 1:02 PM CDT) HEPATITIS A IGM NON-REACTI VE NON-REACT SHERICE [facility] Comment: For additional information, please refer to http://[employer].Hycrete.Slanissue/faq/CXG243 (This link is being provided for informational/ educational purposes only.) HEPATITIS B SURFACE AG NON-REACTI VE NON-REACT SHERICE [facility] Comment: For additional information, please refer to http://[employer]faq/WBR341 (This link is being provided for informational/ educational purposes only.) HEPATITIS B CORE IGM NON-REACTI VE NON-REACT SHERICE [facility] Comment: For additional information, please refer to http://[employer]faq/LAC265 (This link is being provided for informational/ educational purposes only.) HEPATITIS C AB NON-REACTI VE NON-REACT SHERICE [facility] Comment: HCV antibody was non-reactive. There is no laboratory evidence of HCV infection. In most cases, no further action is required. However, if recent HCV exposure is suspected, a test for HCV RNA (test code 05898) is suggested. For additional information please refer to http://education.[employer]faq/KRM98o9 (This link is being provided for informational/ educational purposes only.) Test Performed at: [facility] [id number] [place] [address] Annalee Ortiz MD Blood 11/27/2024 1:02 PM CDT 11/27/2024 1:03 PM CDT Pramod Nascimento [employer] CHEMISTRY ORDERABLES Final Result [facility] [phone] [facility] [address] [place] [address] * CBC WITH DIFFERENTIAL (11/27/2024 1:02 PM CDT) WBC 7.3 3.8 - 10.8 Thousand/u L [facility] RBC 4.75 4.20 - 5.80 Million/uL [facility] HEMOGLOBIN 14.3 13.2 - 17.1 g/dL [facility] HEMATOCRIT 43.7 38.5 - 50.0 % [facility] MCV 92.0 80.0 - 100.0 fL [facility] MCH 30.1 27.0 - 33.0 pg [facility] MCHC 32.7 32.0 - 36.0 g/dL [facility] Comment: For adults, a slight decrease in the calculated MCHC value (in the range of 30 to 32 g/dL) is most likely not clinically significant; however, it should be interpreted with caution in correlation with other red cell parameters and the patient's clinical condition. RDW 14.7 11.0 - 15.0 % [facility] PLATELETS 207 140 - 400 Thousand/u L [facility] MPV 9.8 7.5 - 12.5 fL [facility] NEUTROPHIL ABSOLUTE 4,351 1,500 - 7,800 cells/uL [facility] LYMPHOCYTE ABSOLUTE 2,124 850 - 3,900 cells/uL [facility] MONOCYTE ABSOLUTE 708 200 - 950 cells/uL [facility] EOSINOPHIL ABSOLUTE 58 15 - 500 cells/uL [facility] BASOPHILS ABSOLUTE 58 0 - 200 cells/uL [facility] NEUTROPHIL 59.6 % [facility] LYMPHOCYTES 29.1 % [facility] MONOCYTE 9.7 % [facility] EOSINOPHILS 0.8 % [facility] BASOPHILS 0.8 % [facility] Comment: Test Performed at: [facility] [address] Annalee Ortiz MD Blood 11/27/2024 1:02 PM CDT 11/27/2024 1:03 PM CDT Pramod Nascimento [employer] HEMATOLOGY ORDERABLES Georgina shirley Result [facility] [phone] [address] * VITAMIN D 25 HYDROXY (11/27/2024 1:02 PM CDT) VITAMIN D, 25 OH, TOTAL 80 30 - 100 ng/mL [facility] Comment: Vitamin D Status 25-OH Vitamin D: Deficiency: <20 ng/mL Insufficiency: 20 - 29 ng/mL Optimal: > or = 30 ng/mL For 25-OH Vitamin D testing on patients on D2-supplementation and patients for whom quantitation of D2 and D3 fractions is required, the [facility](TM) 25-OH VIT D, (D2,D3), LC/MS/MS is recommended: order code 06945 (patients >2yrs). See Note 1 Note 1 For additional information, please refer to http://education.Leiyoo/faq/MWX322 (This link is being provided for informational/ educational purposes only.) FASTING:UNKNOWN FASTING: UNKNOWN Test Performed at: [facility] [address] CarminaTrinity Ortiz MD Blood 11/27/2024 1:02 PM CDT 11/27/2024 1:03 PM CDT Pramod Malik Nascimento [facility] CHEMISTRY ORDERABLES Final Result Performing Organization Address City/[facility]/ZIP Co de Phone Number [facility] [phone] [facility] [address] [place] [phone] * TSH (11/27/2024 1:02 PM CDT) TSH 0.74 0.40 - 4.50 mIU/L [facility] Comment: Test Performed at: [facility] [address] Annalee Ortiz MD Blood 11/27/2024 1:02 PM CDT 11/27/2024 1:03 PM CDT Edwintunde King Nascimento [facility] CHEMISTRY ORDERABLES Final Result Performing Organization Address [facility]/ZIP Co de Phone Number [facility] [phone] [facility] [address] [place] [phone] * PSA (11/27/2024 1:02 PM CDT) PSA 0.46 < OR = 4.00 ng/mL [facility] Comment: The total PSA value from this assay system is standardized against the WHO standard. The test result will be approximately 20% lower when compared to the equimolar-standardized total PSA (Eh Yassine). Comparison of serial PSA results should be interpreted with this fact in mind. This test was performed using the Siemens chemiluminescent method. Values obtained from different assay methods cannot be used interchangeably. PSA levels, regardless of value, should not be interpreted as absolute evidence of the presence or absence of disease. Test Performed at: [facility] [id number] [facility] [place] [address] Annalee Ortiz MD Blood 11/27/2024 1:02 PM CDT 11/27/2024 1:03 PM CDT Pramod Nascimento [facility] CHEMISTRY ORDERABLES Final Result [facility] [phone] [facility] [place] [address] * (ABNORMAL) LIPID PANEL (11/27/2024 1:02 PM CDT) CHOLESTEROL 87 <200 mg/dL [facility] HDL 39(L) > OR = 40 mg/dL [facility] TRIGLYCERIDE 91 <150 mg/dL [facility] LDL CALCULATED 31 mg/dL (calc) [facility] Comment: Reference range: <100 Desirable range <100 mg/dL for primary prevention; <70 mg/dL for patients with CHD or diabetic patients with > or = 2 CHD risk factors. LDL-C is now calculated using the Talha-Bay calculation, which is a validated novel method providing better accuracy than the Friedewald equation in the estimation of LDL-C. Talha ALFREDO et al. ERICK. 2013;310(19): 4981-2143 (http://education.[employer].Slanissue/faq/VNW934) CHOL/HDL RATIO 2.2 <5.0 (calc) [facility] NON-HDL CHOLESTEROL 48 <130 mg/dL (calc) [facility] Comment: For patients with diabetes plus 1 major ASCVD risk factor, treating to a non-HDL-C goal of <100 mg/dL (LDL-C of <70 mg/dL) is considered a therapeutic option. Test Performed at: [facility] [id number] [facility] [place] [address] Annalee Ortiz MD Blood 11/27/2024 1:02 PM CDT 11/27/2024 1:03 PM CDT Pramod Nascimento [employer] CHEMISTRY ORDERABLES Final Result [facility] [phone] [facility] [address] [place] [address] * COMPREHENSIVE METABOLIC PANEL (11/27/2024 1:02 PM CDT) GLUCOSE 90 65 - 99 mg/dL [facility] Comment: Fasting reference interval BUN 10 7 - 25 mg/dL [facility] CREATININE 0.96 0.70 - 1.28 mg/dL [facility] GFR 85 > OR = 60 mL/min/1. 73m2 [facility] BUN/CREAT RATIO SEE NOTE: (calc) [facility] Comment: Not Reported: BUN and Creatinine are within reference range. SODIUM 143 135 - 146 mmol/L [facility] POTASSIUM 3.6 3.5 - 5.3 mmol/L [facility] CHLORIDE 108 98 - 110 mmol/L [facility] CO2 29 20 - 32 mmol/L [facility] CALCIUM 8.9 8.6 - 10.3 mg/dL [facility] TOTAL PROTEIN 6.1 6.1 - 8.1 g/dL [facility] ALBUMIN 3.8 3.6 - 5.1 g/dL [facility] GLOBULIN 2.3 1.9 - 3.7 g/dL (calc) [facility] ALBUMIN/GLOBULIN RATIO 1.7 1.0 - 2.5 (calc) [facility] BILIRUBIN TOTAL 0.4 0.2 - 1.2 mg/dL [facility] ALKALINE PHOSPHATASE 98 35 - 144 U/L [facility] AST 35 10 - 35 U/L [facility] ALT 30 9 - 46 U/L [facility] Comment: FASTING:UNKNOWN FASTING: UNKNOWN Test Performed at: [facility] [address] [address] Annalee Ortiz MD Blood 11/27/2024 1:02 PM CDT 11/27/2024 1:03 PM CDT Pramod Nascimento [employer] CHEMISTRY ORDERABLES Final Result [facility] [phone] [facility] [address] [phone] from Last 3 Months Insurance [place]ICAID [place] Care Teams Lift Manager Relationship Specialty Start Date End Date Cortney Verdugo DO [address] [place] [address] PCP - General Family Practice 01/11/21
[2025-01-09 15:09] VITALS: BP 117/68; O2SAT 93
--- NOTE | 2025-01-09 15:20 | DCPLANNER ---
faxed outpatient MRI to scheduling
== END 2025-01-09 16:43 | disposition home or self-care (01) ==
PROVIDERS: Emergency Provider Family Medicine; PCP Family Medicine
DX: S86.012A Strain of left Achilles tendon, initial encounter (principal); F17.210 Nicotine dependence, cigarettes, uncomplicated; E78.5 Hyperlipidemia, unspecified; W18.42XA Slipping, tripping and stumbling without falling due to stepping into hole or opening, initial encounter
CPT/HCPCS: 29515; 73610; 73700; 76882; 99284

== ENCOUNTER 2025-01-10 12:01 | Outpatient (CLI) | payer MEDICARE, SELFPAY ==
--- NOTE | 2025-01-10 12:08 | MR_ITS ---
WS: [id number] MRI LEFT ANKLE WITHOUT CONTRAST. COMPARISON: CT 01/09/2025 Multiplanar, multisequence imaging is performed without contrast. Complete full-thickness tear involving the Achilles tendon. Tear centered 6.5 cm above the Achilles insertion site. Above and below the tear there is enlargement and edema and loss of the normal morphology of the tendon. There is a large amount of soft tissue edema surrounding the mid to distal Achilles tendon. Fluid-filled gap measures approximately 2.1 mm. The torn surfaces of the Achilles tendon are frayed and irregular. The adjacent tendon is tendinopathic. No marrow edema or fractures identified at the ankle. Normal appearance of the extensor and flexor tendons. ATFL and PT FL are intact. Normal appearance of the anterior inferior and posterior inferior tibiofibular ligaments. Normal appearance of the sinus Tarsi. Normal deltoid ligament. Normal calcaneofibular ligament. Spring ligament is unremarkable. Prominent fluid distention of the tendon sheath at the intersection of the flexor hallucis longus and the flexor digitorum longus tendons. Fluid signal extends over a length of 2.5 cm. The tendons themselves appear normal signal. MR/MR ankle LT wo con* [id number] IMPRESSION: 1. Complete tear of the Achilles tendon with slight retraction. The torn ends of the tendon are tendinopathic. 2. Achilles tendon tear centered 6.5 cm above the Achilles tendon insertion si te. 3. Fluid in the tendon sheath of the flexor hallucis longus and flexor digitor um longus at the knot of Andrade consistent with tendon intersection syndrome and tenosynovitis. 4. No fractures. 5. Large amount of soft tissue edema surrounding the ankle.
== END 2025-01-10 12:02 | disposition home or self-care (01) ==
LOC: RAD 12:02
PROVIDERS: PCP Family Medicine; Visit Provider Family Medicine
DX: R93.89 Abnormal findings on diagnostic imaging of other specified body structures (principal); S86.012A Strain of left Achilles tendon, initial encounter; X58.XXXA Exposure to other specified factors, initial encounter; M65.872 Other synovitis and tenosynovitis, left ankle and foot; R60.0 Localized edema
CPT/HCPCS: 73721

== ENCOUNTER 2025-01-14 12:04 | Outpatient (CLI) | payer MEDICARE, SELFPAY | END 2025-01-14 12:05 | disposition home or self-care (01) | LOC: SPT 12:04 | PROVIDERS: PCP Family Medicine; Visit Provider Podiatrist Foot & Ankle Surgery | DX: Z46.89 Encounter for fitting and adjustment of other specified devices (principal); S86.012D Strain of left Achilles tendon, subsequent encounter; X58.XXXD Exposure to other specified factors, subsequent encounter | CPT/HCPCS: L4361 ==

== ENCOUNTER → 2025-01-28 09:15 | Outpatient (BNVA) | payer MEDICARE, SELFPAY | PROVIDERS: PCP Family Medicine; Visit Provider Podiatrist Foot & Ankle Surgery | DX: S86.012A Strain of left Achilles tendon, initial encounter (principal); X58.XXXA Exposure to other specified factors, initial encounter | CPT/HCPCS: 99213 ==